=== PATIENT | male | born 1995 | race Two or more races ===

== ENCOUNTER 2021-09-26 11:30 | Inpatient (IN) | payer OTHER ==
[2021-09-26] MEDS ORDERED: LOPERAMIDE HCL 2 MG CAPSULE PO PRN (12:35)
[2021-09-26] MEDS ORDERED: ONDANSETRON *ODT* 4 MG TABLET SL PRN (12:35)
[2021-09-26] MEDS ORDERED: IBUPROFEN 400 MG TABLET (FP) PO PRN (12:35)
[2021-09-26] MEDS ORDERED: MAG HYDROX/AL HYDROX/SIMETH 30 ML UNIT-DOSE CUP PO PRN (12:35)
[2021-09-26] MEDS ORDERED: ACETAMINOPHEN 325 MG TABLET (FP) PO PRN ×2 (12:35)
[2021-09-26] MEDS ORDERED: MENTHOL/PHENOL 1 EACH UD MM PRN (12:35)
[2021-09-26] MEDS ORDERED: MAGNESIUM CITRATE 300 ML BOTTLE PO PRN (12:35)
[2021-09-26] MEDS ORDERED: MAGNESIUM HYDROX 2400MG/30ML ORAL SUSPENSION 30 ML CUP PO PRN (12:35)
[2021-09-26 14:54] VITALS: BMI 25.9
[2021-09-26] MEDS ORDERED: methaDONE HCL 10 MG TABLET (FOR DETOX USE ONLY) PO ONE (15:30)
[2021-09-26] MEDS: NICOTINE 10 MG CARTRIDGE (INHALER) IH PRN ×2 (17:09→20:29)
[2021-09-26 17:13] LABS: HEMATOCRIT 44.1 % (35.4-49); HEMOGLOBIN 14.5 GM/dL (11.7-16.9); MCH 25.4 pg (25.7-33.7); MCHC 32.8 g/dl (32.0-35.9); MEAN CELL VOLUME 77.5 fl (80-96); PLATELET COUNT 322 10^3/uL (134-434); RBC 5.69 M/mm3 (4.00-5.60); RDW 15.1 % (11.9-15.9)
[2021-09-26 17:18] LABS: CALCIUM 9.8 mg/dL (8.5-10.1)
[2021-09-26 17:19] LABS: BLOOD UREA NITROGEN 17.5 mg/dL (7-18)
[2021-09-26 17:23] LABS: BILIRUBIN,TOTAL 0.9 mg/dL (0.2-1); TOT PROT 7.6 g/dl (6.4-8.2)
[2021-09-26] MEDS: diazePAM 5 MG TABLET PO SCH ×3 (18:00→23:41)
[2021-09-26] MEDS: METHOCARBAMOL 500 MG TABLET PO PRN (18:01)
[2021-09-26] MEDS: hydrOXYzine PAMOATE 25 MG CAPSULE (FP) PO SCH ×3 (18:02→23:42)
[2021-09-26] MEDS: PRENATAL VITAMINS W/ FOLIC ACID TABLET (FP) PO SCH (18:02)
[2021-09-26] MEDS: NICOTINE 21 MG/24 HOURS TOPICAL PATCH TD SCH (19:17)
[2021-09-26] MEDS: MELATONIN 5 MG TABLETS PO SCH (23:41)
[2021-09-26] MEDS: THIAMINE HCL 100 MG TABLET (FP) PO SCH (23:42)
[2021-09-27] MEDS: hydrOXYzine PAMOATE 25 MG CAPSULE (FP) PO SCH ×5 (06:30→22:09)
[2021-09-27] MEDS: diazePAM 5 MG TABLET PO SCH ×4 (06:30→22:08)
[2021-09-27] MEDS ORDERED: methaDONE HCL 10 MG TABLET (FOR DETOX USE ONLY) ONE (08:48)
[2021-09-27] MEDS: diazePAM 5 MG TABLET PO PRN (09:00)
[2021-09-27] MEDS: METHOCARBAMOL 500 MG TABLET PO PRN (10:27)
[2021-09-27] MEDS: PRENATAL VITAMINS W/ FOLIC ACID TABLET (FP) PO SCH (10:27)
[2021-09-27] MEDS: cloNIDine HCL 0.1 MG TABLET PO PRN (10:27)
[2021-09-27] MEDS: NICOTINE 10 MG CARTRIDGE (INHALER) IH PRN ×2 (10:28→22:16)
[2021-09-27] MEDS: NICOTINE 21 MG/24 HOURS TOPICAL PATCH TD SCH (10:28)
[2021-09-27] MEDS: MELATONIN 5 MG TABLETS PO SCH (22:07)
[2021-09-27] MEDS: traZODone HCL 100 MG TABLET (FP) PO SCH (22:08)
[2021-09-27] MEDS: THIAMINE HCL 100 MG TABLET (FP) PO SCH (22:12)
[2021-09-28] MEDS: diazePAM 5 MG TABLET PO SCH ×3 (07:41→22:13)
[2021-09-28] MEDS: hydrOXYzine PAMOATE 25 MG CAPSULE (FP) PO SCH ×5 (07:43→22:12)
[2021-09-28] MEDS: NICOTINE 10 MG CARTRIDGE (INHALER) IH PRN ×3 (07:44→22:16)
[2021-09-28 08:08] LABS: SARS-CoV-2 NAA Not Detected (Not Detected)
[2021-09-28] MEDS ORDERED: methaDONE HCL 10 MG TABLET (FOR DETOX USE ONLY) PO ONE (10:00)
[2021-09-28] MEDS: diazePAM 5 MG TABLET PO PRN ×2 (10:38→18:48)
[2021-09-28] MEDS: PRENATAL VITAMINS W/ FOLIC ACID TABLET (FP) PO SCH (10:42)
[2021-09-28] MEDS: NICOTINE 21 MG/24 HOURS TOPICAL PATCH TD SCH (10:43)
[2021-09-28] MEDS: cloNIDine HCL 0.1 MG TABLET PO PRN (12:34)
[2021-09-28] MEDS: MELATONIN 5 MG TABLETS PO SCH (22:12)
[2021-09-28] MEDS: traZODone HCL 100 MG TABLET (FP) PO SCH (22:12)
[2021-09-28] MEDS: THIAMINE HCL 100 MG TABLET (FP) PO SCH (22:19)
[2021-09-29] MEDS: hydrOXYzine PAMOATE 25 MG CAPSULE (FP) PO SCH ×4 (06:26→17:43)
[2021-09-29] MEDS: diazePAM 5 MG TABLET PO SCH ×2 (06:26→17:43)
[2021-09-29] MEDS: NICOTINE 10 MG CARTRIDGE (INHALER) IH PRN ×4 (09:18→22:07)
[2021-09-29] MEDS ORDERED: methaDONE HCL 10 MG TABLET (FOR DETOX USE ONLY) ONE (10:11)
[2021-09-29] MEDS: diazePAM 5 MG TABLET PO PRN (10:44)
[2021-09-29] MEDS: PRENATAL VITAMINS W/ FOLIC ACID TABLET (FP) PO SCH (10:45)
[2021-09-29] MEDS: METHOCARBAMOL 500 MG TABLET PO PRN ×2 (10:45→17:43)
[2021-09-29] MEDS: NICOTINE 21 MG/24 HOURS TOPICAL PATCH TD SCH (10:46)
[2021-09-29] MEDS: BISMUTH SUBSALICYLATE 524 MG/30 ML PO PRN (13:32)
[2021-09-29] MEDS: GABAPENTIN 300 MG CAPSULE PO SCH (22:04)
[2021-09-29] MEDS: THIAMINE HCL 100 MG TABLET (FP) PO SCH (22:04)
[2021-09-29] MEDS: traZODone HCL 100 MG TABLET (FP) PO SCH (22:04)
[2021-09-29] MEDS: MELATONIN 5 MG TABLETS PO SCH (22:04)
[2021-09-29] MEDS: hydrOXYzine PAMOATE 50 MG CAPSULE (FP) PO SCH (22:04)
[2021-09-30] MEDS ORDERED: diazePAM 5 MG TABLET PO ONE ×2 (06:00→13:25)
[2021-09-30] MEDS: GABAPENTIN 300 MG CAPSULE PO SCH ×3 (06:05→22:15)
[2021-09-30] MEDS: hydrOXYzine PAMOATE 50 MG CAPSULE (FP) PO SCH ×3 (06:06→22:15)
[2021-09-30] MEDS: NICOTINE 10 MG CARTRIDGE (INHALER) IH PRN ×4 (06:06→22:15)
[2021-09-30] MEDS: PRENATAL VITAMINS W/ FOLIC ACID TABLET (FP) PO SCH (09:45)
[2021-09-30] MEDS ORDERED: methaDONE HCL 10 MG TABLET (FOR DETOX USE ONLY) PO ONE (10:00)
[2021-09-30] MEDS: NICOTINE 21 MG/24 HOURS TOPICAL PATCH TD SCH (10:46)
[2021-09-30] MEDS: THIAMINE HCL 100 MG TABLET (FP) PO SCH (22:15)
[2021-09-30] MEDS: traZODone HCL 100 MG TABLET (FP) PO SCH (22:15)
[2021-09-30] MEDS: MELATONIN 5 MG TABLETS PO SCH (22:15)
[2021-10-01] MEDS: hydrOXYzine PAMOATE 50 MG CAPSULE (FP) PO SCH ×2 (05:40→13:36)
[2021-10-01] MEDS: GABAPENTIN 300 MG CAPSULE PO SCH ×2 (05:40→13:36)
[2021-10-01] MEDS: NICOTINE 10 MG CARTRIDGE (INHALER) IH PRN ×2 (05:43→10:23)
[2021-10-01] MEDS: NICOTINE 21 MG/24 HOURS TOPICAL PATCH TD SCH (10:22)
[2021-10-01] MEDS: PRENATAL VITAMINS W/ FOLIC ACID TABLET (FP) PO SCH (10:23)
[2021-10-01 13:06] VITALS: BP 127/73; PULSE 102; TEMP 97.6
[2021-10-01] MEDS: BISMUTH SUBSALICYLATE 524 MG/30 ML PO PRN (13:36)
== END 2021-10-01 17:00 | disposition other institution (70) | DRG 773 ==
LOC: YASAS 11:30 → Y3N 15:14
PROVIDERS: ADMIT Allergy & Immunology; ATTEND Allergy & Immunology
PROC: HZ2ZZZZ Detoxification Services for Substance Abuse Treatment (ICD-10-PCS; principal; 2021-09-26)
DX: F11.23 Opioid dependence with withdrawal (principal); F10.20 Alcohol dependence, uncomplicated; F13.20 Sedative, hypnotic or anxiolytic dependence, uncomplicated; F17.210 Nicotine dependence, cigarettes, uncomplicated; F31.9 Bipolar disorder, unspecified; F39 Unspecified mood [affective] disorder; F43.10 Post-traumatic stress disorder, unspecified; M54.50 Low back pain, unspecified; R73.9 Hyperglycemia, unspecified; Z56.0 Unemployment, unspecified; Z59.00 Homelessness unspecified; Z91.013 Allergy to seafood
CPT/HCPCS: 36415; 80053; 83036; 85027; 86780; 87811; 93005; 93010; C9803-CS; J0735; Q0162; U0003; U0005

== ENCOUNTER 2021-10-01 17:12 | Inpatient (IN) | payer OTHER ==
[2021-10-01] MEDS ORDERED: NICOTINE POLACRILEX 2 MG GUM BUC PRN (18:17)
[2021-10-01] MEDS ORDERED: P-EPHED 60MG/TRIPROLIDI 2.5MG TABLET PO PRN (18:17)
[2021-10-01] MEDS ORDERED: MAGNESIUM HYDROX 2400MG/30ML ORAL SUSPENSION 30 ML CUP PO PRN (18:17)
[2021-10-01] MEDS ORDERED: ACETAMINOPHEN 325 MG TABLET (FP) PO PRN (18:17)
[2021-10-01] MEDS ORDERED: MENTHOL/PHENOL 1 EACH UD MM PRN (18:17)
[2021-10-01] MEDS ORDERED: IBUPROFEN 400 MG TABLET (FP) PO PRN (18:17)
[2021-10-01] MEDS ORDERED: hydrOXYzine PAMOATE 25 MG CAPSULE (FP) PO PRN (18:17)
[2021-10-01] MEDS ORDERED: guaiFENesin 200 MG/10 ML 10 ML UNIT-DOSE CUPS PO PRN (18:17)
[2021-10-01] MEDS ORDERED: LOPERAMIDE HCL 2 MG CAPSULE PO PRN (18:17)
[2021-10-01] MEDS ORDERED: MAGNESIUM CITRATE 300 ML BOTTLE PO PRN (18:17)
[2021-10-01] MEDS: cloNIDine HCL 0.1 MG TABLET PO PRN (20:20)
[2021-10-01] MEDS: MELATONIN 5 MG TABLETS PO PRN (22:10)
[2021-10-01] MEDS: GABAPENTIN 300 MG CAPSULE PO SCH (22:11)
[2021-10-01] MEDS: THIAMINE HCL 100 MG TABLET (FP) PO SCH (22:11)
[2021-10-02] MEDS: GABAPENTIN 300 MG CAPSULE PO SCH ×3 (06:49→21:06)
[2021-10-02] MEDS: PRENATAL VITAMINS W/ FOLIC ACID TABLET (FP) PO SCH (10:57)
[2021-10-02] MEDS: hydrOXYzine PAMOATE 50 MG CAPSULE (FP) PO PRN (12:10)
[2021-10-02] MEDS: NICOTINE 10 MG CARTRIDGE (INHALER) IH PRN ×3 (12:10→20:01)
[2021-10-02] MEDS: BUPRENORPHINE/NALOXONE 8 MG/2 MG FILM PACKET SL SCH (14:26)
[2021-10-02] MEDS: cloNIDine HCL 0.1 MG TABLET PO PRN ×2 (15:42→21:38)
[2021-10-02] MEDS: MAG HYDROX/AL HYDROX/SIMETH 30 ML UNIT-DOSE CUP PO PRN (17:29)
[2021-10-02] MEDS: MELATONIN 5 MG TABLETS PO PRN (21:06)
[2021-10-02] MEDS: traZODone HCL 100 MG TABLET (FP) PO SCH (21:06)
[2021-10-02] MEDS: THIAMINE HCL 100 MG TABLET (FP) PO SCH (21:06)
[2021-10-02] MEDS: TOLNAFTATE 1% CREAM 15 GM TUBE TP SCH (21:07)
[2021-10-03] MEDS: GABAPENTIN 300 MG CAPSULE PO SCH ×3 (05:54→21:29)
[2021-10-03] MEDS: NICOTINE 10 MG CARTRIDGE (INHALER) IH PRN ×4 (05:56→22:28)
[2021-10-03] MEDS: BUPRENORPHINE/NALOXONE 8 MG/2 MG FILM PACKET SL SCH (09:16)
[2021-10-03] MEDS: PRENATAL VITAMINS W/ FOLIC ACID TABLET (FP) PO SCH (09:17)
[2021-10-03] MEDS: TOLNAFTATE 1% CREAM 15 GM TUBE TP SCH ×2 (12:21→21:31)
[2021-10-03] MEDS ORDERED: MINERAL OIL/PETROLAT/WATER TOPICAL CREAM 454 GM JAR TP PRN (13:57)
[2021-10-03] MEDS: hydrOXYzine PAMOATE 50 MG CAPSULE (FP) PO PRN ×2 (14:05→21:31)
[2021-10-03] MEDS ORDERED: MINERAL OIL/PETROLAT/WATER TOPICAL CREAM 113 GM JAR TP PRN (14:10)
[2021-10-03] MEDS: MELATONIN 5 MG TABLETS PO PRN (21:29)
[2021-10-03] MEDS: THIAMINE HCL 100 MG TABLET (FP) PO SCH (21:29)
[2021-10-03] MEDS: traZODone HCL 100 MG TABLET (FP) PO SCH (21:29)
[2021-10-03] MEDS: TOLNAFTATE 1% POWDER 45 GM POW TP SCH (23:49)
[2021-10-04] MEDS: NICOTINE 10 MG CARTRIDGE (INHALER) IH PRN ×4 (06:14→21:03)
[2021-10-04] MEDS: GABAPENTIN 300 MG CAPSULE PO SCH ×3 (06:14→21:04)
[2021-10-04] MEDS: COLLOIDAL OATMEAL 1 BAR EACH TP PRN (06:19)
[2021-10-04] MEDS: PRENATAL VITAMINS W/ FOLIC ACID TABLET (FP) PO SCH (09:18)
[2021-10-04] MEDS: BUPRENORPHINE/NALOXONE 8 MG/2 MG FILM PACKET SL SCH (09:19)
[2021-10-04] MEDS: TOLNAFTATE 1% CREAM 15 GM TUBE TP SCH ×2 (09:19→21:05)
[2021-10-04] MEDS: hydrOXYzine PAMOATE 50 MG CAPSULE (FP) PO PRN ×3 (09:22→21:05)
[2021-10-04] MEDS: TOLNAFTATE 1% POWDER 45 GM POW TP SCH ×2 (10:12→21:05)
[2021-10-04] MEDS: traZODone HCL 100 MG TABLET (FP) PO SCH (21:04)
[2021-10-04] MEDS: MELATONIN 5 MG TABLETS PO PRN (21:04)
[2021-10-04] MEDS: THIAMINE HCL 100 MG TABLET (FP) PO SCH (21:04)
[2021-10-05] MEDS: GABAPENTIN 300 MG CAPSULE PO SCH ×3 (06:34→21:04)
[2021-10-05] MEDS: MAG HYDROX/AL HYDROX/SIMETH 30 ML UNIT-DOSE CUP PO PRN ×2 (06:34→19:04)
[2021-10-05] MEDS: NICOTINE 10 MG CARTRIDGE (INHALER) IH PRN ×3 (06:35→15:32)
[2021-10-05] MEDS: hydrOXYzine PAMOATE 50 MG CAPSULE (FP) PO PRN ×2 (09:58→21:09)
[2021-10-05] MEDS: TOLNAFTATE 1% CREAM 15 GM TUBE TP SCH ×2 (09:58→22:45)
[2021-10-05] MEDS: PRENATAL VITAMINS W/ FOLIC ACID TABLET (FP) PO SCH (09:58)
[2021-10-05] MEDS: TOLNAFTATE 1% POWDER 45 GM POW TP SCH ×2 (09:58→22:45)
[2021-10-05] MEDS: BUPRENORPHINE/NALOXONE 8 MG/2 MG FILM PACKET SL SCH (09:58)
[2021-10-05] MEDS: CALCIUM CARBONATE 650 MG TABLET PO SCH (21:05)
[2021-10-05] MEDS: MELATONIN 5 MG TABLETS PO PRN (21:05)
[2021-10-05] MEDS: traZODone HCL 100 MG TABLET (FP) PO SCH (21:05)
[2021-10-05] MEDS: THIAMINE HCL 100 MG TABLET (FP) PO SCH (22:45)
[2021-10-06] MEDS: GABAPENTIN 300 MG CAPSULE PO SCH ×3 (06:33→22:24)
[2021-10-06] MEDS: NICOTINE 10 MG CARTRIDGE (INHALER) IH PRN ×3 (06:34→22:28)
[2021-10-06] MEDS: hydrOXYzine PAMOATE 50 MG CAPSULE (FP) PO PRN ×3 (06:35→22:24)
[2021-10-06] MEDS: BUPRENORPHINE/NALOXONE 8 MG/2 MG FILM PACKET SL SCH (09:23)
[2021-10-06] MEDS: CALCIUM CARBONATE 650 MG TABLET PO SCH ×2 (09:24→22:24)
[2021-10-06] MEDS: PANTOPRAZOLE SOD 40 MG SUSPENSION PACKET PO SCH (09:24)
[2021-10-06] MEDS: PRENATAL VITAMINS W/ FOLIC ACID TABLET (FP) PO SCH (09:25)
[2021-10-06] MEDS: TOLNAFTATE 1% CREAM 15 GM TUBE TP SCH ×2 (09:26→22:25)
[2021-10-06] MEDS: TOLNAFTATE 1% POWDER 45 GM POW TP SCH ×2 (09:26→22:25)
[2021-10-06] MEDS ORDERED: PANTOPRAZOLE SOD 40 MG SUSPENSION PACKET PO SCH (10:00)
[2021-10-06] MEDS: traZODone HCL 100 MG TABLET (FP) PO SCH (22:24)
[2021-10-06] MEDS: THIAMINE HCL 100 MG TABLET (FP) PO SCH (22:24)
[2021-10-06] MEDS: CHLORHEXIDINE GLUCONATE 0.12% 15ML CUP MM SCH (22:25)
[2021-10-07] MEDS ORDERED: TRIMETHOBENZAMIDE HCL 200MG/2ML INJ IM ONE (02:37)
[2021-10-07] MEDS: GABAPENTIN 300 MG CAPSULE PO SCH ×3 (06:34→21:15)
[2021-10-07] MEDS: NICOTINE 10 MG CARTRIDGE (INHALER) IH PRN ×4 (06:34→21:14)
[2021-10-07] MEDS: hydrOXYzine PAMOATE 50 MG CAPSULE (FP) PO PRN ×3 (06:34→21:16)
[2021-10-07] MEDS: PRENATAL VITAMINS W/ FOLIC ACID TABLET (FP) PO SCH (09:28)
[2021-10-07] MEDS: BUPRENORPHINE/NALOXONE 12 MG-3 MG SL FILM PACKET SL SCH (09:28)
[2021-10-07] MEDS: PANTOPRAZOLE SOD 40 MG SUSPENSION PACKET PO SCH (09:28)
[2021-10-07] MEDS: TOLNAFTATE 1% CREAM 15 GM TUBE TP SCH ×2 (09:29→22:33)
[2021-10-07] MEDS: CHLORHEXIDINE GLUCONATE 0.12% 15ML CUP MM SCH ×2 (09:29→22:33)
[2021-10-07] MEDS: CALCIUM CARBONATE 650 MG TABLET PO SCH ×2 (09:29→21:14)
[2021-10-07] MEDS: TOLNAFTATE 1% POWDER 45 GM POW TP SCH ×2 (09:29→22:33)
[2021-10-07] MEDS: COLLOIDAL OATMEAL 1 BAR EACH TP PRN (14:02)
[2021-10-07] MEDS: THIAMINE HCL 100 MG TABLET (FP) PO SCH (21:15)
[2021-10-07] MEDS: traZODone HCL 100 MG TABLET (FP) PO SCH (21:15)
[2021-10-08] MEDS: GABAPENTIN 300 MG CAPSULE PO SCH ×3 (06:06→21:57)
[2021-10-08] MEDS: hydrOXYzine PAMOATE 50 MG CAPSULE (FP) PO PRN ×3 (06:06→21:59)
[2021-10-08] MEDS: NICOTINE 10 MG CARTRIDGE (INHALER) IH PRN ×2 (06:07→15:51)
[2021-10-08] MEDS: PANTOPRAZOLE SOD 40 MG SUSPENSION PACKET PO SCH (09:45)
[2021-10-08] MEDS: CALCIUM CARBONATE 650 MG TABLET PO SCH ×2 (09:46→21:57)
[2021-10-08] MEDS: PRENATAL VITAMINS W/ FOLIC ACID TABLET (FP) PO SCH (09:46)
[2021-10-08] MEDS: CHLORHEXIDINE GLUCONATE 0.12% 15ML CUP MM SCH ×2 (09:47→22:07)
[2021-10-08] MEDS: TOLNAFTATE 1% POWDER 45 GM POW TP SCH ×2 (09:48→22:07)
[2021-10-08] MEDS: TOLNAFTATE 1% CREAM 15 GM TUBE TP SCH ×2 (09:48→22:07)
[2021-10-08] MEDS: BUPRENORPHINE/NALOXONE 12 MG-3 MG SL FILM PACKET SL SCH (09:49)
[2021-10-08] MEDS: BUPRENORPHINE/NALOXONE 4 MG/1 MG FILM PACKET SL SCH (17:21)
[2021-10-08] MEDS ORDERED: TRIMETHOBENZAMIDE HCL 200MG/2ML INJ IM ONE (20:42)
[2021-10-08] MEDS: traZODone HCL 100 MG TABLET (FP) PO SCH (21:58)
[2021-10-08] MEDS: THIAMINE HCL 100 MG TABLET (FP) PO SCH (22:07)
[2021-10-09] MEDS: GABAPENTIN 300 MG CAPSULE PO SCH (06:56)
[2021-10-09] MEDS: PANTOPRAZOLE SOD 40 MG SUSPENSION PACKET PO SCH (09:59)
[2021-10-09] MEDS: NICOTINE 10 MG CARTRIDGE (INHALER) IH PRN ×3 (09:59→18:33)
[2021-10-09] MEDS: TOLNAFTATE 1% CREAM 15 GM TUBE TP SCH ×2 (10:00→21:03)
[2021-10-09] MEDS: CALCIUM CARBONATE 650 MG TABLET PO SCH ×2 (10:00→21:03)
[2021-10-09] MEDS: TOLNAFTATE 1% POWDER 45 GM POW TP SCH ×2 (10:00→21:04)
[2021-10-09] MEDS: CHLORHEXIDINE GLUCONATE 0.12% 15ML CUP MM SCH ×2 (10:00→21:04)
[2021-10-09] MEDS: PRENATAL VITAMINS W/ FOLIC ACID TABLET (FP) PO SCH (10:00)
[2021-10-09] MEDS: BUPRENORPHINE/NALOXONE 12 MG-3 MG SL FILM PACKET SL SCH (10:00)
[2021-10-09] MEDS: hydrOXYzine PAMOATE 50 MG CAPSULE (FP) PO PRN ×2 (10:01→18:32)
[2021-10-09] MEDS: GABAPENTIN 400 MG CAPSULE PO SCH ×2 (13:40→21:03)
[2021-10-09] MEDS: BUPRENORPHINE/NALOXONE 4 MG/1 MG FILM PACKET SL SCH (18:31)
[2021-10-09] MEDS: THIAMINE HCL 100 MG TABLET (FP) PO SCH (21:02)
[2021-10-09] MEDS: traZODone HCL 100 MG TABLET (FP) PO SCH (21:02)
[2021-10-09] MEDS: MELATONIN 5 MG TABLETS PO PRN (21:02)
[2021-10-10] MEDS: GABAPENTIN 400 MG CAPSULE PO SCH ×3 (06:20→21:33)
[2021-10-10] MEDS: PRENATAL VITAMINS W/ FOLIC ACID TABLET (FP) PO SCH (10:35)
[2021-10-10] MEDS: CALCIUM CARBONATE 650 MG TABLET PO SCH ×2 (10:35→21:33)
[2021-10-10] MEDS: CHLORHEXIDINE GLUCONATE 0.12% 15ML CUP MM SCH ×2 (10:36→21:34)
[2021-10-10] MEDS: BUPRENORPHINE/NALOXONE 12 MG-3 MG SL FILM PACKET SL SCH (10:36)
[2021-10-10] MEDS: TOLNAFTATE 1% CREAM 15 GM TUBE TP SCH ×2 (10:36→21:34)
[2021-10-10] MEDS: TOLNAFTATE 1% POWDER 45 GM POW TP SCH ×2 (10:36→21:34)
[2021-10-10] MEDS: hydrOXYzine PAMOATE 50 MG CAPSULE (FP) PO PRN ×2 (10:37→18:36)
[2021-10-10] MEDS: PANTOPRAZOLE SOD 40 MG SUSPENSION PACKET PO SCH (10:38)
[2021-10-10] MEDS: NICOTINE 10 MG CARTRIDGE (INHALER) IH PRN ×2 (18:03→21:34)
[2021-10-10] MEDS: BUPRENORPHINE/NALOXONE 4 MG/1 MG FILM PACKET SL SCH (18:37)
[2021-10-10] MEDS: MELATONIN 5 MG TABLETS PO PRN (21:33)
[2021-10-10] MEDS: THIAMINE HCL 100 MG TABLET (FP) PO SCH (21:33)
[2021-10-10] MEDS: traZODone HCL 100 MG TABLET (FP) PO SCH (21:33)
[2021-10-11] MEDS: hydrOXYzine PAMOATE 50 MG CAPSULE (FP) PO PRN ×3 (06:15→21:06)
[2021-10-11] MEDS: GABAPENTIN 400 MG CAPSULE PO SCH ×3 (06:15→22:28)
[2021-10-11] MEDS: CHLORHEXIDINE GLUCONATE 0.12% 15ML CUP MM SCH ×2 (09:54→21:08)
[2021-10-11] MEDS: PRENATAL VITAMINS W/ FOLIC ACID TABLET (FP) PO SCH (09:54)
[2021-10-11] MEDS: BUPRENORPHINE/NALOXONE 12 MG-3 MG SL FILM PACKET SL SCH (09:54)
[2021-10-11] MEDS: PANTOPRAZOLE SOD 40 MG SUSPENSION PACKET PO SCH (09:58)
[2021-10-11] MEDS: TOLNAFTATE 1% POWDER 45 GM POW TP SCH ×2 (10:00→21:08)
[2021-10-11] MEDS: TOLNAFTATE 1% CREAM 15 GM TUBE TP SCH ×2 (10:00→21:08)
[2021-10-11] MEDS: CALCIUM CARBONATE 650 MG TABLET PO SCH ×2 (10:00→21:06)
[2021-10-11] MEDS ORDERED: HYDROCORTISONE 1% TOPICAL OINT 30 GM TUBE TP PRN (10:34)
[2021-10-11] MEDS: NICOTINE 10 MG CARTRIDGE (INHALER) IH PRN (14:16)
[2021-10-11] MEDS: BUPRENORPHINE/NALOXONE 4 MG/1 MG FILM PACKET SL SCH (18:55)
[2021-10-11] MEDS: traZODone HCL 100 MG TABLET (FP) PO SCH (21:06)
[2021-10-11] MEDS: THIAMINE HCL 100 MG TABLET (FP) PO SCH (21:06)
[2021-10-11] MEDS: MELATONIN 5 MG TABLETS PO PRN (21:06)
[2021-10-11] MEDS: GABAPENTIN 300 MG CAPSULE PO SCH (21:07)
[2021-10-12] MEDS: GABAPENTIN 400 MG CAPSULE PO SCH (05:57)
[2021-10-12] MEDS: hydrOXYzine PAMOATE 50 MG CAPSULE (FP) PO PRN ×3 (05:57→21:43)
[2021-10-12] MEDS: NICOTINE 10 MG CARTRIDGE (INHALER) IH PRN ×3 (05:58→19:03)
[2021-10-12] MEDS: GABAPENTIN 300 MG CAPSULE PO SCH ×3 (05:58→21:41)
[2021-10-12] MEDS: TOLNAFTATE 1% POWDER 45 GM POW TP SCH ×2 (10:27→21:42)
[2021-10-12] MEDS: TOLNAFTATE 1% CREAM 15 GM TUBE TP SCH ×2 (10:27→21:42)
[2021-10-12] MEDS: BUPRENORPHINE/NALOXONE 12 MG-3 MG SL FILM PACKET SL SCH (10:27)
[2021-10-12] MEDS: CALCIUM CARBONATE 650 MG TABLET PO SCH ×2 (10:27→21:42)
[2021-10-12] MEDS: CHLORHEXIDINE GLUCONATE 0.12% 15ML CUP MM SCH ×2 (10:27→21:42)
[2021-10-12] MEDS: PANTOPRAZOLE SOD 40 MG SUSPENSION PACKET PO SCH (10:27)
[2021-10-12] MEDS: PRENATAL VITAMINS W/ FOLIC ACID TABLET (FP) PO SCH (10:27)
[2021-10-12] MEDS: BUPRENORPHINE/NALOXONE 4 MG/1 MG FILM PACKET SL SCH (17:22)
[2021-10-12] MEDS: THIAMINE HCL 100 MG TABLET (FP) PO SCH (21:42)
[2021-10-12] MEDS: traZODone HCL 100 MG TABLET (FP) PO SCH (21:42)
[2021-10-13] MEDS: GABAPENTIN 300 MG CAPSULE PO SCH ×3 (06:08→21:12)
[2021-10-13] MEDS: hydrOXYzine PAMOATE 50 MG CAPSULE (FP) PO PRN ×3 (06:08→20:41)
[2021-10-13] MEDS: NICOTINE 10 MG CARTRIDGE (INHALER) IH PRN ×3 (06:24→18:12)
[2021-10-13] MEDS: BUPRENORPHINE/NALOXONE 12 MG-3 MG SL FILM PACKET SL SCH (09:42)
[2021-10-13] MEDS: CALCIUM CARBONATE 650 MG TABLET PO SCH ×2 (09:43→21:12)
[2021-10-13] MEDS: TOLNAFTATE 1% POWDER 45 GM POW TP SCH ×2 (09:43→21:14)
[2021-10-13] MEDS: CHLORHEXIDINE GLUCONATE 0.12% 15ML CUP MM SCH ×2 (09:43→21:13)
[2021-10-13] MEDS: PANTOPRAZOLE SOD 40 MG SUSPENSION PACKET PO SCH (09:43)
[2021-10-13] MEDS: PRENATAL VITAMINS W/ FOLIC ACID TABLET (FP) PO SCH (09:43)
[2021-10-13] MEDS: TOLNAFTATE 1% CREAM 15 GM TUBE TP SCH ×2 (09:43→21:13)
[2021-10-13] MEDS: BUPRENORPHINE/NALOXONE 4 MG/1 MG FILM PACKET SL SCH (17:09)
[2021-10-13] MEDS: traZODone HCL 100 MG TABLET (FP) PO SCH (21:12)
[2021-10-13] MEDS: THIAMINE HCL 100 MG TABLET (FP) PO SCH (21:52)
[2021-10-14] MEDS: GABAPENTIN 300 MG CAPSULE PO SCH ×3 (06:00→21:06)
[2021-10-14] MEDS: hydrOXYzine PAMOATE 50 MG CAPSULE (FP) PO PRN ×3 (06:01→21:06)
[2021-10-14] MEDS: TOLNAFTATE 1% CREAM 15 GM TUBE TP SCH ×2 (09:19→21:28)
[2021-10-14] MEDS: BUPRENORPHINE/NALOXONE 12 MG-3 MG SL FILM PACKET SL SCH (09:19)
[2021-10-14] MEDS: PRENATAL VITAMINS W/ FOLIC ACID TABLET (FP) PO SCH (09:19)
[2021-10-14] MEDS: TOLNAFTATE 1% POWDER 45 GM POW TP SCH ×2 (09:19→21:28)
[2021-10-14] MEDS: CALCIUM CARBONATE 650 MG TABLET PO SCH ×2 (09:19→21:06)
[2021-10-14] MEDS: CHLORHEXIDINE GLUCONATE 0.12% 15ML CUP MM SCH ×2 (09:19→21:07)
[2021-10-14] MEDS: PANTOPRAZOLE SOD 40 MG SUSPENSION PACKET PO SCH (09:19)
[2021-10-14] MEDS: NICOTINE 10 MG CARTRIDGE (INHALER) IH PRN ×3 (09:25→21:07)
[2021-10-14] MEDS: BUPRENORPHINE/NALOXONE 4 MG/1 MG FILM PACKET SL SCH (18:42)
[2021-10-14] MEDS: traZODone HCL 100 MG TABLET (FP) PO SCH (21:05)
[2021-10-14] MEDS: THIAMINE HCL 100 MG TABLET (FP) PO SCH (21:06)
[2021-10-14] MEDS: MELATONIN 5 MG TABLETS PO PRN (21:06)
[2021-10-15] MEDS: GABAPENTIN 300 MG CAPSULE PO SCH ×4 (06:48→21:47)
[2021-10-15] MEDS: hydrOXYzine PAMOATE 50 MG CAPSULE (FP) PO PRN ×3 (07:42→23:42)
[2021-10-15] MEDS: NICOTINE 10 MG CARTRIDGE (INHALER) IH PRN ×3 (07:42→21:50)
[2021-10-15] MEDS: BUPRENORPHINE/NALOXONE 12 MG-3 MG SL FILM PACKET SL SCH (09:34)
[2021-10-15] MEDS: PANTOPRAZOLE SOD 40 MG SUSPENSION PACKET PO SCH (09:34)
[2021-10-15] MEDS: CALCIUM CARBONATE 650 MG TABLET PO SCH ×2 (09:34→21:48)
[2021-10-15] MEDS: TOLNAFTATE 1% POWDER 45 GM POW TP SCH ×2 (11:35→21:56)
[2021-10-15] MEDS: TOLNAFTATE 1% CREAM 15 GM TUBE TP SCH ×2 (11:35→21:56)
[2021-10-15] MEDS: CHLORHEXIDINE GLUCONATE 0.12% 15ML CUP MM SCH ×2 (11:35→21:49)
[2021-10-15] MEDS: PRENATAL VITAMINS W/ FOLIC ACID TABLET (FP) PO SCH (11:36)
[2021-10-15] MEDS ORDERED: BUPRENORPHINE/NALOXONE 8 MG/2 MG FILM PACKET SL ONE (18:00)
[2021-10-15] MEDS: THIAMINE HCL 100 MG TABLET (FP) PO SCH (21:47)
[2021-10-15] MEDS: traZODone HCL 100 MG TABLET (FP) PO SCH (21:47)
[2021-10-16] MEDS: GABAPENTIN 300 MG CAPSULE PO SCH ×3 (06:51→21:08)
[2021-10-16] MEDS: hydrOXYzine PAMOATE 50 MG CAPSULE (FP) PO PRN ×3 (06:51→21:07)
[2021-10-16] MEDS: BUPRENORPHINE/NALOXONE 12 MG-3 MG SL FILM PACKET SL SCH (10:22)
[2021-10-16] MEDS: PRENATAL VITAMINS W/ FOLIC ACID TABLET (FP) PO SCH (10:22)
[2021-10-16] MEDS: PANTOPRAZOLE SOD 40 MG SUSPENSION PACKET PO SCH (10:24)
[2021-10-16] MEDS: CHLORHEXIDINE GLUCONATE 0.12% 15ML CUP MM SCH ×2 (10:25→21:08)
[2021-10-16] MEDS: CALCIUM CARBONATE 650 MG TABLET PO SCH ×2 (10:25→21:06)
[2021-10-16] MEDS: TOLNAFTATE 1% POWDER 45 GM POW TP SCH ×2 (10:26→21:09)
[2021-10-16] MEDS: TOLNAFTATE 1% CREAM 15 GM TUBE TP SCH ×2 (10:26→21:08)
[2021-10-16] MEDS ORDERED: BUPRENORPHINE/NALOXONE 8 MG/2 MG FILM PACKET SL ONE (18:41)
[2021-10-16] MEDS: NICOTINE 10 MG CARTRIDGE (INHALER) IH PRN (19:09)
[2021-10-16] MEDS: MELATONIN 5 MG TABLETS PO PRN (21:06)
[2021-10-16] MEDS: THIAMINE HCL 100 MG TABLET (FP) PO SCH (21:06)
[2021-10-16] MEDS ORDERED: traZODone HCL 50 MG TABLET (FP) PO SCH (22:00)
[2021-10-17] MEDS: hydrOXYzine PAMOATE 50 MG CAPSULE (FP) PO PRN ×3 (07:03→21:24)
[2021-10-17] MEDS: GABAPENTIN 300 MG CAPSULE PO SCH (07:03)
[2021-10-17] MEDS: PANTOPRAZOLE SOD 40 MG SUSPENSION PACKET PO SCH (09:51)
[2021-10-17] MEDS: TOLNAFTATE 1% POWDER 45 GM POW TP SCH ×2 (09:52→21:25)
[2021-10-17] MEDS: TOLNAFTATE 1% CREAM 15 GM TUBE TP SCH ×2 (09:52→21:25)
[2021-10-17] MEDS: BUPRENORPHINE/NALOXONE 12 MG-3 MG SL FILM PACKET SL SCH (09:53)
[2021-10-17] MEDS: CALCIUM CARBONATE 650 MG TABLET PO SCH ×2 (09:53→21:23)
[2021-10-17] MEDS: CHLORHEXIDINE GLUCONATE 0.12% 15ML CUP MM SCH ×2 (09:53→21:25)
[2021-10-17] MEDS: PRENATAL VITAMINS W/ FOLIC ACID TABLET (FP) PO SCH (09:53)
[2021-10-17] MEDS: GABAPENTIN 400 MG CAPSULE PO SCH ×2 (13:53→21:23)
[2021-10-17] MEDS ORDERED: hydrOXYzine PAMOATE 50 MG CAPSULE (FP) PO PRN (14:44)
[2021-10-17] MEDS: BUPRENORPHINE/NALOXONE 8 MG/2 MG FILM PACKET SL SCH (17:34)
[2021-10-17] MEDS: MELATONIN 5 MG TABLETS PO PRN (21:22)
[2021-10-17] MEDS: THIAMINE HCL 100 MG TABLET (FP) PO SCH (21:22)
[2021-10-17] MEDS: traZODone HCL 50 MG TABLET (FP) PO SCH (21:23)
[2021-10-17] MEDS ORDERED: BUPRENORPHINE/NALOXONE 8 MG/2 MG FILM PACKET SL SCH (22:00)
[2021-10-18] MEDS: GABAPENTIN 400 MG CAPSULE PO SCH ×3 (07:30→21:36)
[2021-10-18] MEDS: hydrOXYzine PAMOATE 50 MG CAPSULE (FP) PO PRN ×3 (07:31→21:36)
[2021-10-18] MEDS: CHLORHEXIDINE GLUCONATE 0.12% 15ML CUP MM SCH ×2 (10:34→21:37)
[2021-10-18] MEDS: PANTOPRAZOLE SOD 40 MG SUSPENSION PACKET PO SCH (10:34)
[2021-10-18] MEDS: CALCIUM CARBONATE 650 MG TABLET PO SCH ×2 (10:34→21:36)
[2021-10-18] MEDS: TOLNAFTATE 1% CREAM 15 GM TUBE TP SCH ×2 (10:34→21:37)
[2021-10-18] MEDS: PRENATAL VITAMINS W/ FOLIC ACID TABLET (FP) PO SCH (10:34)
[2021-10-18] MEDS: TOLNAFTATE 1% POWDER 45 GM POW TP SCH ×2 (10:34→21:38)
[2021-10-18] MEDS: BUPRENORPHINE/NALOXONE 12 MG-3 MG SL FILM PACKET SL SCH (10:34)
[2021-10-18] MEDS: NICOTINE 10 MG CARTRIDGE (INHALER) IH PRN (12:03)
[2021-10-18] MEDS: BUPRENORPHINE/NALOXONE 8 MG/2 MG FILM PACKET SL SCH (17:33)
[2021-10-18] MEDS: THIAMINE HCL 100 MG TABLET (FP) PO SCH (21:35)
[2021-10-18] MEDS: traZODone HCL 50 MG TABLET (FP) PO SCH (21:36)
[2021-10-19] MEDS: GABAPENTIN 400 MG CAPSULE PO SCH ×3 (06:04→21:58)
[2021-10-19] MEDS: hydrOXYzine PAMOATE 50 MG CAPSULE (FP) PO PRN ×3 (06:05→21:58)
[2021-10-19] MEDS: PANTOPRAZOLE SOD 40 MG SUSPENSION PACKET PO SCH (10:04)
[2021-10-19] MEDS: BUPRENORPHINE/NALOXONE 12 MG-3 MG SL FILM PACKET SL SCH (10:05)
[2021-10-19] MEDS: CALCIUM CARBONATE 650 MG TABLET PO SCH ×2 (10:06→21:58)
[2021-10-19] MEDS: PRENATAL VITAMINS W/ FOLIC ACID TABLET (FP) PO SCH (10:06)
[2021-10-19] MEDS: CHLORHEXIDINE GLUCONATE 0.12% 15ML CUP MM SCH ×2 (10:06→21:59)
[2021-10-19] MEDS: TOLNAFTATE 1% POWDER 45 GM POW TP SCH ×2 (10:06→21:59)
[2021-10-19] MEDS: TOLNAFTATE 1% CREAM 15 GM TUBE TP SCH ×2 (10:06→21:59)
[2021-10-19] MEDS: NICOTINE 10 MG CARTRIDGE (INHALER) IH PRN ×2 (12:32→18:41)
[2021-10-19] MEDS: BUPRENORPHINE/NALOXONE 8 MG/2 MG FILM PACKET SL SCH (18:39)
[2021-10-19] MEDS: THIAMINE HCL 100 MG TABLET (FP) PO SCH (21:57)
[2021-10-19] MEDS: traZODone HCL 50 MG TABLET (FP) PO SCH (21:57)
[2021-10-20] MEDS: GABAPENTIN 400 MG CAPSULE PO SCH ×3 (06:10→21:12)
[2021-10-20] MEDS: hydrOXYzine PAMOATE 50 MG CAPSULE (FP) PO PRN ×3 (06:11→23:07)
[2021-10-20] MEDS: NICOTINE 10 MG CARTRIDGE (INHALER) IH PRN ×2 (06:14→17:09)
[2021-10-20] MEDS: BUPRENORPHINE/NALOXONE 12 MG-3 MG SL FILM PACKET SL SCH (09:52)
[2021-10-20] MEDS: PRENATAL VITAMINS W/ FOLIC ACID TABLET (FP) PO SCH (09:52)
[2021-10-20] MEDS: TOLNAFTATE 1% POWDER 45 GM POW TP SCH ×2 (09:53→21:13)
[2021-10-20] MEDS: CALCIUM CARBONATE 650 MG TABLET PO SCH ×2 (09:53→21:12)
[2021-10-20] MEDS: CHLORHEXIDINE GLUCONATE 0.12% 15ML CUP MM SCH ×2 (09:53→21:13)
[2021-10-20] MEDS: TOLNAFTATE 1% CREAM 15 GM TUBE TP SCH ×2 (09:53→21:13)
[2021-10-20] MEDS: PANTOPRAZOLE SOD 40 MG SUSPENSION PACKET PO SCH (10:45)
[2021-10-20] MEDS: BUPRENORPHINE/NALOXONE 8 MG/2 MG FILM PACKET SL SCH (17:08)
[2021-10-20] MEDS: traZODone HCL 50 MG TABLET (FP) PO SCH (21:11)
[2021-10-20] MEDS: THIAMINE HCL 100 MG TABLET (FP) PO SCH (21:14)
[2021-10-21] MEDS: hydrOXYzine PAMOATE 50 MG CAPSULE (FP) PO PRN ×3 (06:27→21:59)
[2021-10-21] MEDS: GABAPENTIN 400 MG CAPSULE PO SCH ×3 (06:27→21:58)
[2021-10-21] MEDS: BUPRENORPHINE/NALOXONE 12 MG-3 MG SL FILM PACKET SL SCH (10:38)
[2021-10-21] MEDS: CALCIUM CARBONATE 650 MG TABLET PO SCH ×2 (10:39→21:57)
[2021-10-21] MEDS: CHLORHEXIDINE GLUCONATE 0.12% 15ML CUP MM SCH (10:39)
[2021-10-21] MEDS: PRENATAL VITAMINS W/ FOLIC ACID TABLET (FP) PO SCH (10:39)
[2021-10-21] MEDS: TOLNAFTATE 1% POWDER 45 GM POW TP SCH ×2 (10:39→21:58)
[2021-10-21] MEDS: PANTOPRAZOLE SOD 40 MG SUSPENSION PACKET PO SCH (10:39)
[2021-10-21] MEDS: TOLNAFTATE 1% CREAM 15 GM TUBE TP SCH ×2 (10:39→21:59)
[2021-10-21] MEDS: NICOTINE 10 MG CARTRIDGE (INHALER) IH PRN (11:56)
[2021-10-21] MEDS: BUPRENORPHINE/NALOXONE 8 MG/2 MG FILM PACKET SL SCH (18:48)
[2021-10-21] MEDS: THIAMINE HCL 100 MG TABLET (FP) PO SCH (21:58)
[2021-10-21] MEDS: traZODone HCL 50 MG TABLET (FP) PO SCH (21:58)
[2021-10-22] MEDS: CHLORHEXIDINE GLUCONATE 0.12% 15ML CUP MM SCH ×3 (00:09→21:26)
[2021-10-22] MEDS: hydrOXYzine PAMOATE 50 MG CAPSULE (FP) PO PRN ×3 (06:45→21:24)
[2021-10-22] MEDS: GABAPENTIN 400 MG CAPSULE PO SCH ×3 (06:45→21:24)
[2021-10-22] MEDS: BUPRENORPHINE/NALOXONE 12 MG-3 MG SL FILM PACKET SL SCH (10:42)
[2021-10-22] MEDS: CALCIUM CARBONATE 650 MG TABLET PO SCH ×2 (10:43→21:25)
[2021-10-22] MEDS: PRENATAL VITAMINS W/ FOLIC ACID TABLET (FP) PO SCH (10:43)
[2021-10-22] MEDS: PANTOPRAZOLE SOD 40 MG SUSPENSION PACKET PO SCH (11:28)
[2021-10-22] MEDS: TOLNAFTATE 1% POWDER 45 GM POW TP SCH ×2 (11:28→21:26)
[2021-10-22] MEDS: TOLNAFTATE 1% CREAM 15 GM TUBE TP SCH ×2 (11:28→21:26)
[2021-10-22] MEDS: NICOTINE 10 MG CARTRIDGE (INHALER) IH PRN ×2 (12:06→21:26)
[2021-10-22] MEDS: BUPRENORPHINE/NALOXONE 8 MG/2 MG FILM PACKET SL SCH (17:50)
[2021-10-22] MEDS: MELATONIN 5 MG TABLETS PO PRN (21:24)
[2021-10-22] MEDS: THIAMINE HCL 100 MG TABLET (FP) PO SCH (21:24)
[2021-10-22] MEDS: traZODone HCL 50 MG TABLET (FP) PO SCH (21:24)
[2021-10-23] MEDS: hydrOXYzine PAMOATE 50 MG CAPSULE (FP) PO PRN ×3 (06:17→21:03)
[2021-10-23] MEDS: GABAPENTIN 400 MG CAPSULE PO SCH ×3 (06:17→21:03)
[2021-10-23] MEDS: PANTOPRAZOLE SOD 40 MG SUSPENSION PACKET PO SCH (09:18)
[2021-10-23] MEDS: PRENATAL VITAMINS W/ FOLIC ACID TABLET (FP) PO SCH (09:19)
[2021-10-23] MEDS: CHLORHEXIDINE GLUCONATE 0.12% 15ML CUP MM SCH ×2 (09:19→21:04)
[2021-10-23] MEDS: BUPRENORPHINE/NALOXONE 12 MG-3 MG SL FILM PACKET SL SCH (09:19)
[2021-10-23] MEDS: CALCIUM CARBONATE 650 MG TABLET PO SCH ×2 (09:19→21:03)
[2021-10-23] MEDS: TOLNAFTATE 1% POWDER 45 GM POW TP SCH ×2 (09:20→21:04)
[2021-10-23] MEDS: TOLNAFTATE 1% CREAM 15 GM TUBE TP SCH ×2 (09:20→21:04)
[2021-10-23] MEDS: NICOTINE 10 MG CARTRIDGE (INHALER) IH PRN ×2 (11:52→18:58)
[2021-10-23] MEDS: BUPRENORPHINE/NALOXONE 8 MG/2 MG FILM PACKET SL SCH (17:36)
[2021-10-23] MEDS: THIAMINE HCL 100 MG TABLET (FP) PO SCH (21:02)
[2021-10-23] MEDS: traZODone HCL 50 MG TABLET (FP) PO SCH (21:02)
[2021-10-23] MEDS: MELATONIN 5 MG TABLETS PO PRN (21:02)
[2021-10-24] MEDS: hydrOXYzine PAMOATE 50 MG CAPSULE (FP) PO PRN ×3 (06:20→21:27)
[2021-10-24] MEDS: GABAPENTIN 400 MG CAPSULE PO SCH ×3 (06:20→21:26)
[2021-10-24 06:38] VITALS: TEMP 98.6
[2021-10-24] MEDS: PRENATAL VITAMINS W/ FOLIC ACID TABLET (FP) PO SCH (10:40)
[2021-10-24] MEDS: PANTOPRAZOLE SOD 40 MG SUSPENSION PACKET PO SCH (10:41)
[2021-10-24] MEDS: CHLORHEXIDINE GLUCONATE 0.12% 15ML CUP MM SCH ×2 (10:41→21:28)
[2021-10-24] MEDS: CALCIUM CARBONATE 650 MG TABLET PO SCH ×2 (10:41→21:26)
[2021-10-24] MEDS: TOLNAFTATE 1% POWDER 45 GM POW TP SCH ×2 (10:42→21:28)
[2021-10-24] MEDS: TOLNAFTATE 1% CREAM 15 GM TUBE TP SCH ×2 (10:42→21:28)
[2021-10-24] MEDS ORDERED: BUPRENORPHINE/NALOXONE 12 MG-3 MG SL FILM PACKET SL ONE (11:11)
[2021-10-24] MEDS: NICOTINE 10 MG CARTRIDGE (INHALER) IH PRN (11:42)
[2021-10-24] MEDS: BUPRENORPHINE/NALOXONE 8 MG/2 MG FILM PACKET SL SCH (17:43)
[2021-10-24] MEDS: THIAMINE HCL 100 MG TABLET (FP) PO SCH (21:26)
[2021-10-24] MEDS: MELATONIN 5 MG TABLETS PO PRN (21:26)
[2021-10-24] MEDS: traZODone HCL 50 MG TABLET (FP) PO SCH (21:26)
[2021-10-25] MEDS: GABAPENTIN 400 MG CAPSULE PO SCH ×3 (06:55→21:05)
[2021-10-25] MEDS: hydrOXYzine PAMOATE 50 MG CAPSULE (FP) PO PRN ×3 (07:38→21:07)
[2021-10-25] MEDS: CALCIUM CARBONATE 650 MG TABLET PO SCH ×2 (09:24→21:05)
[2021-10-25] MEDS: PANTOPRAZOLE SOD 40 MG SUSPENSION PACKET PO SCH (09:26)
[2021-10-25] MEDS: BUPRENORPHINE/NALOXONE 12 MG-3 MG SL FILM PACKET SL SCH (09:26)
[2021-10-25] MEDS: TOLNAFTATE 1% POWDER 45 GM POW TP SCH ×2 (09:27→21:06)
[2021-10-25] MEDS: PRENATAL VITAMINS W/ FOLIC ACID TABLET (FP) PO SCH (09:27)
[2021-10-25] MEDS: CHLORHEXIDINE GLUCONATE 0.12% 15ML CUP MM SCH ×2 (09:27→21:06)
[2021-10-25] MEDS: TOLNAFTATE 1% CREAM 15 GM TUBE TP SCH ×2 (09:27→21:08)
[2021-10-25 10:57] VITALS: BP 120/70; PULSE 72
[2021-10-25] MEDS: BUPRENORPHINE/NALOXONE 8 MG/2 MG FILM PACKET SL SCH (17:32)
[2021-10-25] MEDS: traZODone HCL 50 MG TABLET (FP) PO SCH (21:05)
[2021-10-25] MEDS: THIAMINE HCL 100 MG TABLET (FP) PO SCH (21:07)
[2021-10-26] MEDS: GABAPENTIN 400 MG CAPSULE PO SCH (06:48)
[2021-10-26] MEDS: hydrOXYzine PAMOATE 50 MG CAPSULE (FP) PO PRN (06:48)
[2021-10-26] MEDS: PANTOPRAZOLE SOD 40 MG SUSPENSION PACKET PO SCH (08:41)
[2021-10-26] MEDS: BUPRENORPHINE/NALOXONE 12 MG-3 MG SL FILM PACKET SL SCH (09:01)
[2021-10-26] MEDS: PRENATAL VITAMINS W/ FOLIC ACID TABLET (FP) PO SCH (09:20)
[2021-10-26] MEDS: CALCIUM CARBONATE 650 MG TABLET PO SCH (09:20)
[2021-10-26] MEDS: TOLNAFTATE 1% POWDER 45 GM POW TP SCH (09:20)
[2021-10-26] MEDS: TOLNAFTATE 1% CREAM 15 GM TUBE TP SCH (09:20)
[2021-10-26] MEDS: CHLORHEXIDINE GLUCONATE 0.12% 15ML CUP MM SCH (09:20)
== END 2021-10-26 09:00 | disposition home or self-care (01) | DRG 772 ==
LOC: YASAS 17:12 → Y3W 17:13
PROVIDERS: ADMIT Allergy & Immunology; ATTEND Allergy & Immunology
PROC: HZ42ZZZ Group Counseling for Substance Abuse Treatment, Cognitive-Behavioral (ICD-10-PCS; principal; 2021-10-01)
DX: F11.20 Opioid dependence, uncomplicated (principal); F10.20 Alcohol dependence, uncomplicated; F17.210 Nicotine dependence, cigarettes, uncomplicated; F39 Unspecified mood [affective] disorder; F43.10 Post-traumatic stress disorder, unspecified; G47.00 Insomnia, unspecified; G25.81 Restless legs syndrome; R12 Heartburn; R10.30 Lower abdominal pain, unspecified; R11.2 Nausea with vomiting, unspecified; L23.2 Allergic contact dermatitis due to cosmetics; T49.8X5A Adverse effect of other topical agents, initial encounter; Y92.238 Other place in hospital as the place of occurrence of the external cause; Z56.0 Unemployment, unspecified; Z59.00 Homelessness unspecified
CPT/HCPCS: J0735

== ENCOUNTER 2021-12-07 10:55 | Inpatient (IN) | payer OTHER ==
[2021-12-07 11:10] VITALS: BMI 32.8
[2021-12-07] MEDS ORDERED: IBUPROFEN 400 MG TABLET (FP) PO PRN (11:35)
[2021-12-07] MEDS ORDERED: ACETAMINOPHEN 325 MG TABLET (FP) PO PRN ×2 (11:35)
[2021-12-07] MEDS ORDERED: LOPERAMIDE HCL 2 MG CAPSULE PO PRN (11:35)
[2021-12-07] MEDS ORDERED: cloNIDine HCL 0.1 MG TABLET PO PRN (11:35)
[2021-12-07] MEDS ORDERED: MAG HYDROX/AL HYDROX/SIMETH 30 ML UNIT-DOSE CUP PO PRN (11:35)
[2021-12-07] MEDS ORDERED: ONDANSETRON *ODT* 4 MG TABLET SL PRN (11:35)
[2021-12-07] MEDS ORDERED: BISMUTH SUBSALICYLATE 524 MG/30 ML PO PRN (11:35)
[2021-12-07] MEDS ORDERED: BENZOCAINE/MENTHOL (CHLORASEPTIC ) LOZENGE MM PRN (11:35)
[2021-12-07] MEDS ORDERED: MAGNESIUM HYDROX 2400MG/30ML ORAL SUSPENSION 30 ML CUP PO PRN (11:35)
[2021-12-07] MEDS ORDERED: MAGNESIUM CITRATE 300 ML BOTTLE PO PRN (11:35)
[2021-12-07] MEDS ORDERED: DICYCLOMINE HCL 10 MG CAPSULE PO PRN (11:35)
[2021-12-07] MEDS ORDERED: methaDONE HCL 10 MG TABLET (FOR DETOX USE ONLY) ONE (12:24)
[2021-12-07] MEDS ORDERED: clonazePAM 0.5 MG ODT TABLETS SL ONE (12:24)
[2021-12-07] MEDS: clonazePAM 0.5 MG ODT TABLETS SL PRN ×2 (12:29→20:51)
[2021-12-07] MEDS: methaDONE HCL 10 MG TABLET (FOR DETOX USE ONLY) PO ONE ×2 (12:30→13:23)
[2021-12-07] MEDS: NICOTINE 21 MG/24 HOURS TOPICAL PATCH TD SCH (13:25)
[2021-12-07] MEDS: PRENATAL VITAMINS W/ FOLIC ACID TABLET (FP) PO SCH (13:26)
[2021-12-07] MEDS: NICOTINE 10 MG CARTRIDGE (INHALER) IH PRN ×2 (13:26→17:51)
[2021-12-07] MEDS: hydrOXYzine PAMOATE 25 MG CAPSULE (FP) PO SCH ×2 (13:26→17:49)
[2021-12-07] MEDS: GABAPENTIN 300 MG CAPSULE PO SCH (15:24)
[2021-12-07 16:05] LABS: HEMATOCRIT 42.8 % (35.4-49); HEMOGLOBIN 14.4 GM/dL (11.7-16.9); MCH 26.1 pg (25.7-33.7); MCHC 33.7 g/dl (32.0-35.9); MEAN CELL VOLUME 77.6 fl (80-96); MEAN PLT VOLUME 7.7 fl (7.5-11.1); PLATELET COUNT 273 10^3/uL (134-434); RBC 5.52 M/mm3 (4.00-5.60); RDW 14.7 % (11.9-15.9); WHITE BLOOD COUNT 7.2 K/mm3 (4.0-10.0)
[2021-12-07 16:12] LABS: ALBUMIN 4.2 g/dl (3.4-5.0); BLOOD UREA NITROGEN 12.3 mg/dL (7-18); CALCIUM 9.4 mg/dL (8.5-10.1)
[2021-12-07 16:15] LABS: CREATININE 0.9 mg/dL (0.55-1.3)
[2021-12-07 16:17] LABS: BILIRUBIN,TOTAL 0.2 mg/dL (0.2-1); TOT PROT 7.4 g/dl (6.4-8.2)
[2021-12-07] MEDS ORDERED: MELATONIN 5 MG TABLETS PO SCH (22:00)
[2021-12-08] MEDS: traZODone HCL 100 MG TABLET (FP) PO SCH ×2 (00:23→22:43)
[2021-12-08] MEDS: GABAPENTIN 300 MG CAPSULE PO SCH ×4 (00:23→22:43)
[2021-12-08] MEDS: hydrOXYzine PAMOATE 25 MG CAPSULE (FP) PO SCH ×7 (00:24→22:43)
[2021-12-08] MEDS: THIAMINE HCL 100 MG TABLET (FP) PO SCH ×2 (00:24→22:43)
[2021-12-08] MEDS: clonazePAM 0.5 MG ODT TABLETS SL PRN ×3 (06:04→22:43)
[2021-12-08] MEDS ORDERED: methaDONE HCL 10 MG TABLET (FOR DETOX USE ONLY) ONE (09:48)
[2021-12-08] MEDS: PRENATAL VITAMINS W/ FOLIC ACID TABLET (FP) PO SCH (10:37)
[2021-12-08] MEDS: NICOTINE 10 MG CARTRIDGE (INHALER) IH PRN (10:39)
[2021-12-08] MEDS: NICOTINE 21 MG/24 HOURS TOPICAL PATCH TD SCH (10:39)
[2021-12-08] MEDS: METHOCARBAMOL 500 MG TABLET PO PRN (20:18)
[2021-12-09] MEDS: GABAPENTIN 300 MG CAPSULE PO SCH ×3 (06:53→22:55)
[2021-12-09] MEDS: hydrOXYzine PAMOATE 25 MG CAPSULE (FP) PO SCH ×5 (06:53→22:55)
[2021-12-09] MEDS ORDERED: methaDONE HCL 10 MG TABLET (FOR DETOX USE ONLY) PO ONE (10:00)
[2021-12-09] MEDS: PRENATAL VITAMINS W/ FOLIC ACID TABLET (FP) PO SCH (10:32)
[2021-12-09] MEDS: NICOTINE 21 MG/24 HOURS TOPICAL PATCH TD SCH (10:35)
[2021-12-09] MEDS: clonazePAM 0.5 MG ODT TABLETS SL PRN ×2 (12:41→22:58)
[2021-12-09] MEDS: NICOTINE 10 MG CARTRIDGE (INHALER) IH PRN ×2 (12:42→17:57)
[2021-12-09] MEDS: THIAMINE HCL 100 MG TABLET (FP) PO SCH (22:55)
[2021-12-09] MEDS: traZODone HCL 100 MG TABLET (FP) PO SCH (22:56)
[2021-12-10] MEDS: hydrOXYzine PAMOATE 25 MG CAPSULE (FP) PO SCH ×5 (05:40→22:26)
[2021-12-10] MEDS: GABAPENTIN 300 MG CAPSULE PO SCH ×3 (05:40→22:24)
[2021-12-10] MEDS ORDERED: methaDONE HCL 10 MG TABLET (FOR DETOX USE ONLY) ONE (09:41)
[2021-12-10] MEDS: PRENATAL VITAMINS W/ FOLIC ACID TABLET (FP) PO SCH (10:12)
[2021-12-10] MEDS: NICOTINE 21 MG/24 HOURS TOPICAL PATCH TD SCH (10:13)
[2021-12-10] MEDS: clonazePAM 0.5 MG ODT TABLETS SL PRN (10:14)
[2021-12-10] MEDS: NICOTINE 10 MG CARTRIDGE (INHALER) IH PRN ×3 (10:15→22:26)
[2021-12-10] MEDS: THIAMINE HCL 100 MG TABLET (FP) PO SCH (22:24)
[2021-12-10] MEDS: traZODone HCL 100 MG TABLET (FP) PO SCH (22:24)
[2021-12-11] MEDS: hydrOXYzine PAMOATE 25 MG CAPSULE (FP) PO SCH ×5 (06:11→22:34)
[2021-12-11] MEDS: GABAPENTIN 300 MG CAPSULE PO SCH ×3 (06:11→22:32)
[2021-12-11] MEDS ORDERED: methaDONE HCL 10 MG TABLET (FOR DETOX USE ONLY) PO ONE (10:00)
[2021-12-11] MEDS: NICOTINE 21 MG/24 HOURS TOPICAL PATCH TD SCH (10:02)
[2021-12-11] MEDS: PRENATAL VITAMINS W/ FOLIC ACID TABLET (FP) PO SCH (10:02)
[2021-12-11] MEDS: METHOCARBAMOL 500 MG TABLET PO PRN ×2 (10:02→16:01)
[2021-12-11] MEDS: NICOTINE 10 MG CARTRIDGE (INHALER) IH PRN (10:03)
[2021-12-11] MEDS: THIAMINE HCL 100 MG TABLET (FP) PO SCH (22:32)
[2021-12-11] MEDS: traZODone HCL 100 MG TABLET (FP) PO SCH (22:33)
[2021-12-12] MEDS: hydrOXYzine PAMOATE 25 MG CAPSULE (FP) PO SCH (05:09)
[2021-12-12] MEDS: GABAPENTIN 300 MG CAPSULE PO SCH (05:09)
[2021-12-12 05:53] VITALS: BP 111/64; PULSE 75; TEMP 97.8
== END 2021-12-12 06:32 | disposition home or self-care (01) | DRG 773 ==
LOC: YASAS 10:55 → Y6N 12:18
PROVIDERS: ADMIT Allergy & Immunology; ATTEND Surgery
PROC: HZ2ZZZZ Detoxification Services for Substance Abuse Treatment (ICD-10-PCS; principal; 2021-12-07)
DX: F11.23 Opioid dependence with withdrawal (principal); F10.20 Alcohol dependence, uncomplicated; F13.20 Sedative, hypnotic or anxiolytic dependence, uncomplicated; F17.210 Nicotine dependence, cigarettes, uncomplicated; F19.282 Other psychoactive substance dependence with psychoactive substance-induced sleep disorder; F31.9 Bipolar disorder, unspecified; F39 Unspecified mood [affective] disorder; F43.10 Post-traumatic stress disorder, unspecified; F63.9 Impulse disorder, unspecified; G47.00 Insomnia, unspecified; M54.50 Low back pain, unspecified; G89.29 Other chronic pain; R71.8 Other abnormality of red blood cells
CPT/HCPCS: 36415; 80053; 82962; 85027; 86780; C9803-CS; J0735; U0003; U0005

== ENCOUNTER 2021-12-26 10:39 | Inpatient (IN) | payer OTHER ==
[2021-12-26] MEDS ORDERED: BISMUTH SUBSALICYLATE 262 MG/15 ML BTL PO PRN (11:12)
[2021-12-26] MEDS ORDERED: ACETAMINOPHEN 325 MG TABLET (FP) PO PRN ×2 (11:12)
[2021-12-26] MEDS ORDERED: DICYCLOMINE HCL 10 MG CAPSULE PO PRN (11:12)
[2021-12-26] MEDS ORDERED: ONDANSETRON *ODT* 4 MG TABLET SL PRN (11:12)
[2021-12-26] MEDS ORDERED: BENZOCAINE/MENTHOL (CHLORASEPTIC ) LOZENGE MM PRN (11:12)
[2021-12-26] MEDS ORDERED: IBUPROFEN 600 MG TABLET (FP) PO PRN (11:12)
[2021-12-26] MEDS ORDERED: METHOCARBAMOL 500 MG TABLET PO PRN (11:12)
[2021-12-26] MEDS ORDERED: LOPERAMIDE HCL 2 MG CAPSULE PO PRN (11:12)
[2021-12-26] MEDS ORDERED: MAG HYDROX/AL HYDROX/SIMETH 30 ML UNIT-DOSE CUP PO PRN (11:12)
[2021-12-26] MEDS ORDERED: IBUPROFEN 400 MG TABLET (FP) PO PRN (11:12)
[2021-12-26] MEDS ORDERED: MAGNESIUM HYDROX 2400MG/30ML ORAL SUSPENSION 30 ML CUP PO PRN (11:12)
[2021-12-26] MEDS ORDERED: MAGNESIUM CITRATE 300 ML BOTTLE PO PRN (11:12)
[2021-12-26 12:22] VITALS: BMI 33.0
[2021-12-26] MEDS: hydrOXYzine PAMOATE 25 MG CAPSULE (FP) PO SCH ×3 (13:52→22:20)
[2021-12-26] MEDS: NICOTINE 21 MG/24 HOURS TOPICAL PATCH TD SCH (13:53)
[2021-12-26] MEDS: diazePAM 5 MG TABLET PO SCH ×3 (13:53→22:20)
[2021-12-26] MEDS: PRENATAL VITAMINS W/ FOLIC ACID TABLET (FP) PO SCH (13:53)
[2021-12-26] MEDS: NICOTINE 10 MG CARTRIDGE (INHALER) IH PRN (13:56)
[2021-12-26 15:58] LABS: CALCIUM 9.4 mg/dL (8.5-10.1)
[2021-12-26 15:59] LABS: ALBUMIN 4.2 g/dl (3.4-5.0); BLOOD UREA NITROGEN 19.7 mg/dL (7-18)
[2021-12-26 16:00] LABS: HEMATOCRIT 43.9 % (35.4-49); HEMOGLOBIN 14.5 GM/dL (11.7-16.9); MCH 25.8 pg (25.7-33.7); MEAN CELL VOLUME 78.1 fl (80-96); MEAN PLT VOLUME 8.5 fl (7.5-11.1); PLATELET COUNT 265 10^3/uL (134-434); RBC 5.62 M/mm3 (4.00-5.60); RDW 14.6 % (11.9-15.9); WHITE BLOOD COUNT 8.7 K/mm3 (4.0-10.0)
[2021-12-26 16:04] LABS: BILIRUBIN,TOTAL 0.3 mg/dL (0.2-1); TOT PROT 7.8 g/dl (6.4-8.2)
[2021-12-26] MEDS: MELATONIN 5 MG TABLETS PO SCH (22:21)
[2021-12-26] MEDS: THIAMINE HCL 100 MG TABLET (FP) PO SCH (22:21)
[2021-12-27] MEDS: diazePAM 5 MG TABLET PO SCH ×4 (05:02→22:32)
[2021-12-27] MEDS: hydrOXYzine PAMOATE 25 MG CAPSULE (FP) PO SCH ×5 (05:03→22:32)
[2021-12-27] MEDS: NICOTINE 10 MG CARTRIDGE (INHALER) IH PRN ×2 (05:06→10:20)
[2021-12-27] MEDS ORDERED: methaDONE HCL 10 MG TABLET PO SCH (08:30)
[2021-12-27] MEDS ORDERED: methaDONE HCL 40 MG DISPERSABLE TABLET ONE (08:50)
[2021-12-27] MEDS ORDERED: methaDONE HCL 10 MG TABLET ONE (08:50)
[2021-12-27] MEDS: methaDONE 40 MG, methaDONE 10 MG PO SCH (09:04)
[2021-12-27] MEDS: PRENATAL VITAMINS W/ FOLIC ACID TABLET (FP) PO SCH (10:20)
[2021-12-27] MEDS: NICOTINE 21 MG/24 HOURS TOPICAL PATCH TD SCH (10:22)
[2021-12-27] MEDS: diazePAM 5 MG TABLET PO PRN (14:07)
[2021-12-27] MEDS: GABAPENTIN 300 MG CAPSULE PO SCH (22:32)
[2021-12-27] MEDS: THIAMINE HCL 100 MG TABLET (FP) PO SCH (22:32)
[2021-12-27] MEDS: MELATONIN 5 MG TABLETS PO SCH (22:32)
[2021-12-28] MEDS ORDERED: methaDONE HCL 10 MG TABLET ONE (04:19)
[2021-12-28] MEDS ORDERED: methaDONE HCL 40 MG DISPERSABLE TABLET ONE (04:19)
[2021-12-28] MEDS: methaDONE 40 MG, methaDONE 10 MG PO SCH (05:18)
[2021-12-28] MEDS: GABAPENTIN 300 MG CAPSULE PO SCH ×3 (05:19→22:30)
[2021-12-28] MEDS: hydrOXYzine PAMOATE 25 MG CAPSULE (FP) PO SCH ×5 (05:19→22:30)
[2021-12-28] MEDS: diazePAM 5 MG TABLET PO SCH ×3 (05:21→22:30)
[2021-12-28] MEDS: PRENATAL VITAMINS W/ FOLIC ACID TABLET (FP) PO SCH (10:36)
[2021-12-28] MEDS: NICOTINE 10 MG CARTRIDGE (INHALER) IH PRN (10:37)
[2021-12-28] MEDS: NICOTINE 21 MG/24 HOURS TOPICAL PATCH TD SCH (10:38)
[2021-12-28] MEDS: diazePAM 5 MG TABLET PO PRN (18:15)
[2021-12-28] MEDS: THIAMINE HCL 100 MG TABLET (FP) PO SCH (22:30)
[2021-12-28] MEDS: MELATONIN 5 MG TABLETS PO SCH (22:30)
[2021-12-29] MEDS ORDERED: methaDONE HCL 40 MG DISPERSABLE TABLET ONE (04:15)
[2021-12-29] MEDS ORDERED: methaDONE HCL 10 MG TABLET ONE (04:15)
[2021-12-29] MEDS: hydrOXYzine PAMOATE 25 MG CAPSULE (FP) PO SCH ×5 (05:27→22:23)
[2021-12-29] MEDS: GABAPENTIN 300 MG CAPSULE PO SCH ×3 (05:27→22:23)
[2021-12-29] MEDS: diazePAM 5 MG TABLET PO SCH ×2 (05:27→18:06)
[2021-12-29] MEDS: methaDONE 40 MG, methaDONE 10 MG PO SCH (05:27)
[2021-12-29] MEDS: diazePAM 5 MG TABLET PO PRN (10:09)
[2021-12-29] MEDS: PRENATAL VITAMINS W/ FOLIC ACID TABLET (FP) PO SCH (10:10)
[2021-12-29] MEDS: NICOTINE 21 MG/24 HOURS TOPICAL PATCH TD SCH (10:10)
[2021-12-29] MEDS: NICOTINE 10 MG CARTRIDGE (INHALER) IH PRN (16:46)
[2021-12-29] MEDS: THIAMINE HCL 100 MG TABLET (FP) PO SCH (22:23)
[2021-12-29] MEDS: MELATONIN 5 MG TABLETS PO SCH (22:24)
[2021-12-30] MEDS ORDERED: methaDONE HCL 10 MG TABLET ONE (04:11)
[2021-12-30] MEDS ORDERED: methaDONE HCL 40 MG DISPERSABLE TABLET ONE (04:12)
[2021-12-30] MEDS: methaDONE 40 MG, methaDONE 10 MG PO SCH (05:19)
[2021-12-30] MEDS: GABAPENTIN 300 MG CAPSULE PO SCH (05:20)
[2021-12-30] MEDS: hydrOXYzine PAMOATE 25 MG CAPSULE (FP) PO SCH ×2 (05:21→09:38)
[2021-12-30] MEDS ORDERED: diazePAM 5 MG TABLET PO ONE (06:00)
[2021-12-30] MEDS: NICOTINE 21 MG/24 HOURS TOPICAL PATCH TD SCH (09:38)
[2021-12-30] MEDS: PRENATAL VITAMINS W/ FOLIC ACID TABLET (FP) PO SCH (09:38)
[2021-12-30 09:56] VITALS: BP 123/73; PULSE 80; TEMP 97.8
== END 2021-12-30 09:46 | disposition home or self-care (01) | DRG 773 ==
LOC: YASAS 10:39 → Y3N 11:59
PROVIDERS: ADMIT Allergy & Immunology; ATTEND Surgery
PROC: HZ2ZZZZ Detoxification Services for Substance Abuse Treatment (ICD-10-PCS; principal; 2021-12-26)
DX: F10.230 Alcohol dependence with withdrawal, uncomplicated (principal); F11.20 Opioid dependence, uncomplicated; F13.20 Sedative, hypnotic or anxiolytic dependence, uncomplicated; F17.210 Nicotine dependence, cigarettes, uncomplicated; F14.10 Cocaine abuse, uncomplicated; F12.10 Cannabis abuse, uncomplicated; F31.81 Bipolar II disorder; F63.9 Impulse disorder, unspecified; F43.10 Post-traumatic stress disorder, unspecified; G47.00 Insomnia, unspecified; M54.50 Low back pain, unspecified; G89.29 Other chronic pain; E66.9 Obesity, unspecified; Z68.33 Body mass index [BMI] 33.0-33.9, adult
CPT/HCPCS: 36415; 80053; 85027; 86780; C9803-CS; U0003; U0005